=== PATIENT | male | born 1955 | race Caucasian/White ===

== ENCOUNTER 2017-03-22 07:17 | Day surgery (SDC) | payer BC ==
[2017-03-20 12:54] VITALS: BMI 32.3
[2017-03-22] MEDS ORDERED: BUPIVACAINE HCL 0.25% 125 MG/50 ML VIAL ONE (09:54)
[2017-03-22] MEDS ORDERED: PROPOFOL 20 ML ONE (10:15)
[2017-03-22] MEDS ORDERED: MIDAZOLAM HCL 2 MG/2 ML SINGLE DOSE VIAL ONE (10:15)
[2017-03-22] MEDS ORDERED: BUPIVACAINE HCL/PF 0.25% (2.5MG/ML) 10 ML VIAL IJ ONE (10:55)
[2017-03-22] MEDS ORDERED: ONDANSETRON 4 MG/2 ML VIAL ONE ×2 (11:04→11:35)
[2017-03-22] MEDS ORDERED: KETOROLAC TROMETHAMINE 30 MG/1 ML VIAL ONE (11:04)
[2017-03-22] MEDS ORDERED: DEXAMETHASONE SOD PHOSPHATE 4 MG/1 ML VIAL ONE (11:04)
[2017-03-22] MEDS ORDERED: oxyCODONE HCL 5 MG TABLET PO PRN (11:23)
[2017-03-22] MEDS ORDERED: ONDANSETRON 4 MG/2 ML VIAL IVPUSH PRN (11:23)
[2017-03-22] MEDS ORDERED: LACTATED RINGERS SOLUTION 1,000 ML IV SCH (11:30)
[2017-03-22 13:02] VITALS: TEMP 98
[2017-03-22 13:46] VITALS: BP 135/90; PULSE 78
--- NOTE | 2017-03-24 19:21 | OP ---
DATE OF OPERATION: 03/22/2017 PREOPERATIVE DIAGNOSIS: Right knee medial meniscal tear. POSTOPERATIVE DIAGNOSIS: Right knee medial meniscal tear. PROCEDURE: Right knee arthroscopy with partial medial meniscectomy. TOURNIQUET TIME: 20 minutes. POSTOPERATIVE CONDITION: Stable. COMPLICATIONS: None. INDICATIONS: This is a pleasant 61-year-old gentleman who is suffering from medial knee pain. MRI demonstrated medial meniscal tear. Treatment options including nonoperative versus operative management were discussed. Operative risks were discussed in detail including bleeding, infection, neurovascular injury, need for further surgery, postoperative pain and stiffness, progression of osteoarthritis. I addressed medical risks such as heart attack, stroke, DVT, PE, and . I addressed all the patient's questions. He voiced understanding and elected to proceed. DESCRIPTION OF PROCEDURE: The patient was brought to the operating room where general anesthesia was administered. The right lower extremity was then prepped and draped in the usual sterile fashion. A preoperative dose of antibiotics was given, and the usual timeout procedure was performed. At this point, the portal sites were marked out on the right knee. The limb was elevated, and tourniquet was inflated to 250 mmHg. The 11 blade was now used to establish the lateral portal. The arthroscope was then passed into the knee. Examination of the patellofemoral joint demonstrated some slight superficial cartilage fraying. Passing the arthroscope into the notch demonstrated intact ACL and PCL. A medial portal was now established under spinal needle localization. The medial compartment was now examined. There was a small, approximately 7-mm cartilage lesion with near full thickness on the lateral aspect of the medial femoral condyle. This was gently debrided using a shaver. The meniscus was now examined. There was a [id number] tear in the posterior horn, extending up to the body of the medial meniscus. Utilizing a meniscal biter as well as a shaver, this was debrided down to a stable base. The arthroscope was now passed into the lateral compartment. Here, there was some superficial fraying of the cartilage surfaces. The meniscus was visualized and seemed to be intact. A probe was passed, and no tear was seen or palpated. At this point, the excess fluid was withdrawn from the joint. Portals were sutured using 3-0 nylon. The tourniquet was let down. Patient was extubated and transferred to recovery room in stable condition. VENITAReal [id number]
== END 2017-03-22 12:40 | disposition home or self-care (01) ==
LOC: FASU 07:17
PROVIDERS: ATTEND Orthopaedic Surgery Sports Medicine
PROC: 0SBC4ZZ Excision of Right Knee Joint, Percutaneous Endoscopic Approach (ICD-10-PCS; principal; 2017-03-22 10:47)
DX: S83.241A Other tear of medial meniscus, current injury, right knee, initial encounter (principal); X58.XXXA Exposure to other specified factors, initial encounter; Y93.9 Activity, unspecified; Y92.9 Unspecified place or not applicable
CPT/HCPCS: 94760

== ENCOUNTER 2019-04-14 09:25 | Day surgery (SDC) | payer BC ==
[2019-04-08 09:47] VITALS: BMI 28.2
[2019-04-14] MEDS ORDERED: PROPOFOL 20 ML ONE ×2 (10:56)
[2019-04-14 11:26] VITALS: TEMP 97.7
[2019-04-14 12:13] VITALS: BP 132/83; PULSE 77
--- NOTE | 2019-04-16 17:00 | PATH ---
Surgical Pathology Report Patient Name: PETER CAGLE [facility]. Rec. #: [id number] /Age/Gender: 1955 (Age: 63) / M Account: [id number] Location: [facility] Taken: 04/14/2019 Received: 04/14/2019 Reported: 04/16/2019 Physicians: Conor Vitale M.D. Specimen(s) Received POLYP SPLENIC FLEXURE Clinical History Screening Postoperative diagnosis: Colon polyp, diverticulosis, internal and external hemorrhoids Final Diagnosis SPLENIC FLEXURE POLYP, POLYPECTOMY: TUBULAR ADENOMA. Electronically Signed Ga Mcginnis M.D. Gross Description Received in formalin, labeled "biopsy polyp splenic flexure" is a macias, irregular portion of soft tissue measuring 0.7 cm. in greatest dimension. The specimen is submitted in toto in one cassette. 04/15/201904/15/2019
== END 2019-04-14 11:50 | disposition home or self-care (01) ==
LOC: FASU-ENDO 09:25
PROVIDERS: ATTEND Internal Medicine Gastroenterology
PROC: 0DBL8ZX Excision of Transverse Colon, Via Natural or Artificial Opening Endoscopic, Diagnostic (ICD-10-PCS; principal; 2019-04-14 10:59)
DX: Z86.010 Personal history of colon polyps (principal); D12.3 Benign neoplasm of transverse colon; K57.30 Diverticulosis of large intestine without perforation or abscess without bleeding; K64.4 Residual hemorrhoidal skin tags; K64.8 Other hemorrhoids
CPT/HCPCS: 88305-TC